=== PATIENT | female | born 1985 | race African-American/Black ===

== ENCOUNTER 2024-12-29 10:11 | Emergency (ER) | payer BC ==
[2024-12-29] MEDS ORDERED: Fluorescein Opthalmic Strip ONE (11:31)
[2024-12-29] MEDS ORDERED: Proparacaine 0.5% Opth 15 ML BOT ONE (11:31)
[2024-12-29] MEDS ORDERED: Ketorolac Tromethamine 0.5% Ophth Soln 5 ML BOT OP SCH (12:30)
== END 2024-12-29 13:10 | disposition home or self-care (01) ==
LOC: ERS 10:11
DX: H57.12 Ocular pain, left eye (principal)
CPT/HCPCS: 99283